=== PATIENT | female | born 1990 | race Two or more races ===

== ENCOUNTER 2018-01-04 20:18 | Emergency (ER) | payer MEDICAID ==
[~2018-01-04] VITALS: Ht 165.1 cm; Wt 74.8 kg
[2018-01-04 20:41] VITALS: BP 109/69
--- NOTE | 2018-01-04 20:41 | NUR ---
PT BIBSELF C/O "DYSURIA/LOWER ABD PAIN SINCE YESTERDAY" PT AOX3 RR EVEN AND UNLABORED. NO SOB NOTED. NAD NOTED. NO NVD AT THIS TIME. PT WAITING FOR MD PALMA.
--- NOTE | 2018-01-04 20:42 | NUR ---
URINE COLLECTED. SENT TO LAB
[2018-01-04 21:04] LABS: APPEARANCE,URINE Clear (CLEAR); BILIRUBIN,URINE Negative (NEGATIVE); BLOOD, URINE Negative Ery/uL (NEGATIVE); COLOR,URINE Yellow (YELLOW); KETONES,URINE Trace (NEGATIVE); LEUKOCYTE ESTERASE ,URINE Negative (NEGATIVE); NITRITE, URINE Negative (NEGATIVE); PH,URINE 6.5 (5.0-8.0); PROTEIN,URINE 30 mg/dl (NEGATIVE); UGLUCOSE Negative (NEGATIVE); UROBILINOGEN,URINE 0.2 EU/dL (0.2)
[2018-01-04 21:10] LABS: BACTERIA,URINE Rare /HPF (None Seen); RBC,URINE NONE SEEN /HPF (0-2); SQUAMOUS EPITHELIAL CELL,UR Few /HPF (None Seen); WBC,URINE NONE SEEN /HPF (0-3)
== END 2018-01-04 21:31 | disposition home or self-care (01) ==
LOC: ER 20:18
DX: R30.0 Dysuria (principal)
CPT/HCPCS: 81000-TC; 84703-TC; A4606; Z7610

== ENCOUNTER 2022-05-21 15:15 | Emergency (ER) | payer MEDICAID ==
[~2022-05-21] VITALS: Ht 162.6 cm; Wt 81.6 kg
[2022-05-21 15:30] VITALS: BP 114/64
== END 2022-05-21 17:47 | disposition home or self-care (01) ==
LOC: ER 15:22
DX: O26.90 Pregnancy related conditions, unspecified, unspecified trimester (principal); S80.11XA Contusion of right lower leg, initial encounter; Z60.2 Problems related to living alone; Z3A.00 Weeks of gestation of pregnancy not specified; W20.1XXA Struck by object due to collapse of building, initial encounter; Y93.89 Activity, other specified; Y92.89 Other specified places as the place of occurrence of the external cause; Y99.8 Other external cause status
CPT/HCPCS: 73564-TC; 73590-TC